=== PATIENT | male | born 1960 | race Caucasian/White ===

== ENCOUNTER 2023-08-04 03:45 | Outpatient (RCR) | payer BC, SELFPAY ==
[2023-07-30 15:46] LABS: Glucose - Point of Care 109 mg/dl (70-99)
[2023-07-30 16:27] LABS: Glucose - Point of Care 100 mg/dl (70-99)
[2023-08-01 16:06] LABS: Glucose - Point of Care 134 mg/dl (70-99)
[2023-08-01 16:58] LABS: Glucose - Point of Care 110 mg/dl (70-99)
[2023-08-04 15:51] LABS: Glucose - Point of Care 121 mg/dl (70-99)
[2023-08-04 16:36] LABS: Glucose - Point of Care 96 mg/dl (70-99)
[2023-08-04 16:45] LABS: Glucose - Point of Care 86 mg/dl (70-99)
[2023-08-04 16:59] LABS: Glucose - Point of Care 102 mg/dl (70-99)
== END 2023-08-04 23:59 | disposition home or self-care (01) ==
LOC: CRHB 03:45
PROVIDERS: ATTENDING PHYSICIAN Internal Medicine Cardiovascular Disease; FAMILY PHYSICIAN Internal Medicine
DX: I25.10 Atherosclerotic heart disease of native coronary artery without angina pectoris (principal); Z95.5 Presence of coronary angioplasty implant and graft; I25.2 Old myocardial infarction
CPT/HCPCS: 82962; G0422; G0423

== ENCOUNTER 2023-12-04 13:43 | Observation (INO) | payer BC, SELFPAY ==
[2023-12-04] VITALS (18 sets, daily range): BP systolic 102–132; BP diastolic 51–81; BMI 26.8
--- NOTE | 2023-12-04 08:56 | ED.GENMED ---
History of Present Illness
General
Chief Complaint: Chest Pain
Source: patient and records
Time Seen by Provider: 12/04/23 08:34
Travel History
Have you had any contact with someone who has COVID-19?: No
Do you have any symptoms of coronavirus? Fever > 100 degrees, chills, cough, shortness of breath, sore throat, loss of taste or smell, muscle aches, or headache?: No
History of Present Illness
History of Present Illness:
63-year-old male with past medical history of hypertension, hyperlipidemia, diabetes, CAD status post multiple coronary stents with last in July 2023, follows with hand outside cutter Dr. Christine, presenting to the emergency department for evaluation
after he was awoken from sleep around 2 AM with a sensation in the upper part of his chest and throat that he describes as if he were running in the cold air and causing discomfort in his chest. Patient took 1 sublingual nitroglycerin with some
relief and was able to fall back asleep. He awoke again around 630 and while showering developed the discomfort again in his chest and took another sublingual nitroglycerin which she is did help the pain but did not take it away completely.
Patient notes that he was a little diaphoretic during the first episode of chest discomfort but states he was also under the covers and was not sure if it was related to being a warm sleeper. Patient denies any shortness of breath, palpitations,
exertional dyspnea, orthopnea, lower extremity edema, fevers or any recent infections, recent travel or any other concerns. He reports good compliance with his medications including aspirin and Plavix.
Past History
Past History
ED Past Medical History: CAD, HTN, Hypercholesterolemia, NIDDM and CO
ED Past Surgical History: Cardiac and Orthopedic
Social History
Tobacco: Non-smoker
Alcohol: None
Drug: None
Personal:
Living: with family
Employment: Employed
Review of Systems
Review of Systems
All Other Systems: ROS reviewed and negative except as documented in HPI and ROS
Phy Exam
Physical Exam
Physical Exam:
GENERAL: Alert , in no apparent distress
EYE: conjunctiva clear
NECK: Supple
ENT: o/p clr, mmm.
CARDIAC: Regular rate and rhythm, no murmur
LUNGS: Clear breath sounds bilaterally, no acute respiratory distress, no wheezes/rales/rhonchi
NEUROLOGICAL: Alert and oriented
SKIN: Warm and dry, skin intact.
MUSCULOSKELETAL: well perfused. No edema
PSYCH: Normal and appropriate interaction.
Scores
Heart Failure Risk
Heart Failure Risk Score: Not Applicable
Heart Score for Chest Pain Patients
STEMI patient?: No
History: Moderately Suspicious
ECG: Normal
Age: >45 - <65 years
Risk Factors: >/= 3 Risk Factors or History of CAD
Troponin: </= Normal Limit
Heart Score for Chest Pain Patients: 4
Heart Score Risk: 20.3% MACE over next 6 weeks
Withdrawal Assessment of Alcohol
Withdrawal Assessment Completed?: Not applicable
Course
Orders/Labs/Results
Orders:
Orders
12/04/23 08:17
Electrocardiogram (*1) Urgent
Reason for Study: Chest Pain
EKG- Treatment ONCE
12/04/23 08:51
Cardiac Monitoring- Treatment ONCE
CR Chest - 2 Views Urgent
Comment:
Reason For Exam: chest pain
12/04/23 09:03
Complete Blood Count/With Diff Urgent
Comprehensive Metabolic Panel Urgent
PTT Urgent
Prothrombin Time Urgent
Troponin I Urgent
12/04/23 12:33
Troponin I Urgent
Abnormal Lab Results
12/04/23
09:03
RDW 14.7 H %
(11.5-14.5)
Absolute Neuts (auto) 7.7 H 10^3/uL
(1.4-6.5)
Lymphocytes % 18.1 L %
(20.5-51.1)
Sodium 134 L mmol/L
(135-145)
Glucose 150 H mg/dl
(70-99)
12/04/23 09:03
12/04/23 09:03
Vital Signs
Initial and Last Documented VS:
Initial Vital Signs
Temp Pulse Resp BP Pulse Ox
98.0 F 86 18 131/73 96
12/04/23 08:24 12/04/23 08:24 12/04/23 08:24 12/04/23 08:24 12/04/23 08:24
Last Documented Vital Signs
Temp Pulse Resp BP Pulse Ox
98.0 F 84 16 119/73 96
12/04/23 08:24 12/04/23 12:15 12/04/23 12:15 12/04/23 12:00 12/04/23 12:15
Health And Safety Advisor consulted with Physician
Health And Safety Advisor consulted with physician?: Yes
Name of Physician Consulted: Mary
MDM/Problems Addressed
Differential Diagnosis Includes:
atypical ACS, angina, musculoskeletal, GERD, gastritis
MDM/Problems Addressed:
63-year-old male present emergency department for 2 separate episodes of chest discomfort since 2 AM this morning. Notes that these presenting symptoms felt similar to when he needed previous coronary stents with last being in July 2023.
Patient's EKG in triage is nonischemic and reassuring. He is currently symptom-free at this time. Will check labs and chest x-ray. Will discuss with cardiology team as well given risk factors and presenting symptoms.
Chronic conditions affecting care: CAD
*Radiology
Radiology exam reviewed: preliminary read by ED provider (unremarkable CXR)
*Pulse Oximetry
Patient hypoxic: no
*EKG
Interpreted by ED Provider?: Yes
Comparison EKG: no changes
Heart Rate: 78
Rate: normal
Rhythm: sinus
Mathis: normal axis
Ischemia: no ischemia
*Wire Twisting Machine Operator Interpretation
Rate: normal
Rhythm: sinus
*Critical Care Note
Total Time (30-74mins, 75-104mins- exclusive of procedures): Not Applicable
Data Reviewed
Review of Other/Old Records Reveals: Labs, Records and Discharge Summary
Source: patient and records
Patient Management
Discussion with other providers: Hospitalist and Industrial Arts Teacher
Escalation/DeEscalation of care consider admission/obs:
Cardiology team was notified and came to the emergency department to evaluate the patient. They are ultimately recommending the patient to be admitted for further evaluation and treatment. Repeat troponin was ordered. Hospitalist was notified and
accepts patient for continued evaluation and treatment.
ED Attending Note
-
Portions of this chart may have been created with voice recognition software.� Occasional wrong word or��sound alike� substitutions may have occurred due to the inherent limitations of voice recognition software.
Discharge Plan
Departure
Patient Disposition: Admit
Date of Disposition: 12/04/23
Time of Disposition: 12:25
Presentation/result/management discussed w/ accepting MD/DO: Hospitalist
Discharge Problem:
Angina pectoris
Prescriptions:
No Action
aspirin 81 MG tablet,delayed release (DR/EC)
81 mg PO DAILY
metformin 1,000 MG tablet
1,000 mg PO BID
clopidogrel [Plavix] 75 mg Tablet
75 mg PO DAILY
losartan 25 mg Tablet
25 mg PO DAILY
Jardiance 25 mg Tablet
25 mg PO DAILY
nitroglycerin 0.4 mg Tablet, Sublingual
0.4 mg SUBLINGUAL [id number] PRN (Reason: chest pain)
Patient Comments:
12/04/2023, pt. took two tablets today. One tablet around 0300 and the other around 07:45.
rosuvastatin 40 mg Tablet
40 mg PO QPM 30 Days Qty: 30 2RF
pantoprazole [Protonix] 20 MG tablet,delayed release (DR/EC)
20 mg PO DAILY Qty: 0 0RF
tamsulosin [Flomax] 0.4 mg Capsule
0.4 mg PO HS Qty: 0 0RF
metoprolol succinate 50 mg Tablet Extended Release 24 Hr
50 mg PO BID
isosorbide mononitrate 120 mg Tablet Extended Release 24 Hr
120 mg PO DAILY
glimepiride 4 mg Tablet
2 mg PO DAILY
ibuprofen 200 mg Tablet
400 mg PO BIDPRN PRN (Reason: mild pain)
Ozempic 0.25 mg or 0.5 mg (2 mg/3 mL) Pen Injector
0.25 mg SC FR@0800
Patient Comments:
12/04/2023, read message between pt. and their PCP about continuing to take 0.25 mg dose of Ozempic once a week on pt.'s phone.
therapeutic multivitamin Tablet
1 tab PO QPM
insulin degludec [Tresiba FlexTouch U-200] 200 unit/mL (3 mL) insulin pen
30 - 40 unit SC HS
Patient Comments:
12/04/2023, per pt., they take between 30-40 units of this med. HS; if their BS is below 150 they take closer to 30 units and if their BS is around 100 they skip the dose altogether.
Referrals:
John Laguerre MD [Family Provider] -
Interventions
Interventions:
*Risk Screen - Suicide Last Done: 12/04/23 08:24
*General Assessment Last Done: 12/04/23 08:59
*Neglect/Abuse Screening Last Done: 12/04/23 08:24
*ED COVID-19 Vaccine History Last Done: 12/04/23 08:24
ED- Cardiac Assessment Last Done: 12/04/23 09:01
[2023-12-04 09:14] LABS: % Basophils 0.5 % (0-2); % Eosinophils 1.3 % (0-6); % Immature Granulocytes 0.3 % (0-0.5); % Lymphocytes 18.1 % (20.5-51.1); % Monocytes 5.9 % (1.7-9.3); % Neutrophils 73.9 % (42.2-75.2); Absolute Basophils 0.1 10^3/uL (0-0.2); Absolute Eosinophils 0.1 10^3/uL (0-0.7); Absolute Lymphocytes 1.9 10^3/uL (1.2-3.4); Absolute Monocytes 0.6 10^3/uL (0.1-0.6); Absolute Neutrophils 7.7 10^3/uL (1.4-6.5); Hematocrit 41.2 % (39.0-52.0); Hemoglobin 14.2 g/dL (13.0-18.0); Mean Corp Hgb Conc. 34.5 g/dL (33.0-37.0); Mean Corpuscular Hgb 27.7 pg (27.0-31.0); Mean Corpuscular Volume 80.5 fL (80.0-94.0); Mean Platelet Volume 10.1 fL (7.4-10.4); Nucleated Red Blood Cells % 0 % (-); Platelet Count 253 10^3/uL (130-400); Red Blood Cell Count 5.12 10^6/uL (4.70-6.10); Red Cell Dist. Width 14.7 % (11.5-14.5); White Blood Cell Count 10.4 10^3/uL (4.8-10.8)
[2023-12-04 09:26] LABS: INR 1.02; PT 13.4 Sec (11.4-14.6)
[2023-12-04 09:27] LABS: APTT 32.3 Sec (23.4-35.0)
[2023-12-04 09:32] LABS: ALT (SGPT) 25 U/L (0-50); AST (SGOT) 28 U/L (17-59); Albumin 3.8 g/dl (3.5-5.0); Alkaline Phosphatase 61 U/L (38-126); Blood Urea Nitrogen 16 mg/dl (9-20); Carbon Dioxide 27 mmol/L (22-30); Chloride 103 mmol/L (98-107); Estimated Creatinine Clearance 105 ml/min; Glucose 150 mg/dl (70-99); Potassium 3.9 mmol/L (3.5-5.1); Sodium 134 mmol/L (135-145); Total Bilirubin 0.6 mg/dl (0.2-1.3); Total Protein 6.4 g/dl (6.3-8.2); eGFR > 60.00
[2023-12-04 09:40] LABS: Troponin I < 0.012 ng/ml
--- NOTE | 2023-12-04 11:11 | CON.CAR ---
Addendum entered and electronically signed by Nitesh Noland MD 12/04/23 12:36:
I saw and examined the patient.
The PRODUCT MGR's note was reviewed and I agree with the note.
Comment: 63 y/o male with hypertension, dyslipidemia, DM2, CAD with stenting (details below- hx stenting, jailed septal, jailed marginal) who is here for evaluation of chest discomfort. He has had two episodes this AM one awoke from sleep and the
other with minimal exertion, similar pain to before, and given significant CAD history will recommend coronary angiography.
- NPO for angiography
- further recommendations to follow
Original Note:
Consultation
Consultation Request
Date/Time Consultation Requested: 12/04/23 1015
Date/Time Consultation Performed: 12/04/23 1135
Requesting Provider: Deshawn Agarwal
Performing Provider: Leanne NAIR for Dr. Noland
Reason for Consultation: Chest discomfort
Medical History
-
Chief Complaint: chest discomfort
History of Present Illness:
63 y/o male with hypertension, dyslipidemia, DM2, CAD with stenting (details below- hx stenting, jailed septal, jailed marginal) who is here for evaluation of chest discomfort (left-sided cold feeling/pressure) which woke him up from sleep around
330 AM. He took a nitro and went back to sleep. He got up this morning and during his shower around 7 developed the discomfort again and took another nitro. It went away within minutes. He is here for further evaluation and EKG and troponin are
normal. He is chest pain free at the time of my assessment. He is a patient of Dr. Diallo. He has not been very active of recent.
Past Medical History
Past Medical History: CAD, HTN, Hypercholesterolemia and NIDDM
Social History
Tobacco: Former Smoker
Personal:
Living: With Family
Employment: Employed
Family History
Family History: Early CAD (brother RI age 47)
Allergies / Home Medications
Allergy/AdvReac Type Severity Reaction Status Date / Time
Fish Containing Products Allergy Anaphylaxis Verified 12/04/23 08:30
fish derived Allergy Anaphylaxis Verified 12/04/23 08:30
mollusks Allergy Anaphylaxis Verified 12/04/23 08:30
shellfish derived Allergy Anaphylaxis Verified 12/04/23 08:30
Medication Instructions Recorded Confirmed Type
aspirin 81 mg tablet,delayed 81 mg PO DAILY Blood Clot 10/14/16 12/04/23 History
release Prevention/Tx
metformin 1,000 mg tablet 1,000 mg PO BID Diabetes 10/14/16 12/04/23 History
clopidogrel 75 mg tablet (Plavix) 75 mg PO DAILY Blood Clot 07/05/23 12/04/23 History
Prevention/Tx
empagliflozin 25 mg tablet 25 mg PO DAILY Diabetes 07/05/23 12/04/23 History
(Jardiance)
losartan 25 mg tablet 25 mg PO DAILY Blood Pressure 07/05/23 12/04/23 History
nitroglycerin 0.4 mg sublingual 0.4 mg sublingual [id number] PRN 07/05/23 12/04/23 History
tablet chest pain
pantoprazole 20 mg tablet,delayed 20 mg PO DAILY GERD #0 tabs 07/09/23 12/04/23 Rx
release (Protonix)
rosuvastatin 40 mg tablet 40 mg PO QPM 30 days #30 tabs 07/09/23 12/04/23 Rx
tamsulosin 0.4 mg capsule (Flomax) 0.4 mg PO HS BPH #0 caps 07/09/23 12/04/23 Rx
glimepiride 4 mg tablet 2 mg PO DAILY 12/04/23 12/04/23 History
ibuprofen 200 mg tablet 400 mg PO BIDPRN PRN mild pain 12/04/23 12/04/23 History
insulin degludec 200 unit/mL (3 30 - 40 unit SC HS Diabetes 12/04/23 12/04/23 History
mL) subcutaneous pen (Tresiba
FlexTouch U-200 insulin)
isosorbide mononitrate 120 mg 120 mg PO DAILY 12/04/23 12/04/23 History
tablet,extended release 24 hr
metoprolol succinate 50 mg 50 mg PO BID 12/04/23 12/04/23 History
tablet,extended release 24 hr
semaglutide 0.25 mg or 0.5 mg (2 0.25 mg SC FR@0800 12/04/23 12/04/23 History
mg/3 mL) subcutaneous pen injector
(Ozempic)
therapeutic multivitamin 1 tab PO QPM Allergies 12/04/23 12/04/23 History
Review of Systems
-
History Source: Patient
All other systems: Negative unless noted
Cardiac: Chest Pain
Physical Exam
Vital Signs
Temp Pulse Resp BP Pulse Ox
98.0 F 80 20 124/75 94
12/04/23 08:24 12/04/23 09:00 12/04/23 09:00 12/04/23 09:00 12/04/23 09:01
Lab Results
12/04/23 09:03
12/04/23 09:03
Troponin I < 0.012 ng/ml 12/04/23 09:03
Physical Exam
General: Well Developed, Well Nourished and No Apparent Distress
HEENT: Normocephalic and Anicteric
Respiratory: Non Labored Respirations
Cardiac: Regular Rhythm
Breast: Deferred by me
GI: Soft, Non Distended and Normal Bowel Sounds
Musculoskeletal: No Edema
Skin: Warm and Dry
Neuro: AO x 3
Psych: Calm
Impression / Plan
-
Chest discomfort:
-resolved
-EKG and trop normal
-known significant CAD as below, this pain feels similar to previous angina
-could represent unstable angina and may need repeat cath - will discuss case with Dr. Noland
CAD:
-Cath 07/07/23: Right dominant circulation with patent stents in the proximal/mid LAD, 30% mid LAD lesion after the stented segment, a 30% lesion in the mid margin leading into the ostia of 2 daughter branches, a 90% proximal RCA lesion and tandem
70% and 60% lesions in the mid RCA, status post successful PCI to the proximal/mid RCA lesions (Xience Skypoint 3.0 x 38 MYLES, postdilated with a 3.0 NC balloon) with reduction in all stenoses to 0%, maintaining CONNOR-3 flow in the body of the vessel
but jailing and occluding the right ventricular marginal with associated chest pain.
-Continue ASA, Plavix, statin, BB, Imdur
Dyslipidemia:
-has been stable on Crestor
DM:
-on medical therapy
Data Reviewed
-
EKG: Tracing Personally Visualized and interpreted
Medical Tests (Nuc Med, Echo etc): Report Reviewed by me (echo 07/08/23: 1. Normal wall motion with EF 50-55% 2. RVE/mild RV hypokinesis 3. No significant valvular disease ) and Other (cath: )
Labs: Labs Reviewed by me
[2023-12-04 13:04] LABS: Troponin I < 0.012 ng/ml
--- NOTE | 2023-12-04 13:05 | HPS.HSE ---
Family Physician
-
Family Physician: John Laguerre MD
Chief Complaint
-
Chest pain
History of Present Illness
Patient is 63 years old male history hypertension, hyperlipidemia, diabetes mellitus, CAD presented to the hospital chest pain. Patient tells me he woke up from sleep this morning with significant chest pain, left-sided chest pain, no radiation, no
shortness of breath diaphoresis nausea or vomiting or palpitations. He took a nitro and his pain got better and he went back to sleep. He woke up again this morning with recurrence of chest discomfort and took another nitro at this time it took a
little longer to get better and decided to come to the hospital for further evaluation. He states this presentation is similar to when he had problems with heart attack. Denies any recent illness like nausea vomiting diarrhea fevers or chills.
Denies any changes on his regimen of treatment at home. Currently in the ER his chest pain-free. In the ER, hemoglobin 14.2, creatinine 0.7, troponin less than 0.012. Cardiology consulted. He was referred to hospitalist for further evaluation.
Medical History
Past Medical History
Past Medical History: Reports Other (Hypertension, hyperlipidemia, diabetes mellitus type 2, CAD.)
Past Surgical History: Reports Other (Cervical spine fusion, cholecystectomy.)
Social History
Tobacco: Former Smoker
Alcohol: None
Drug: None
Family History
Family History: Early CAD
Allergies / Home Medications
Allergies reflects when Allergies were last updated in [facility].
Home Medications with original date entered in [facility]
Allergy/Medication List:
Allergies
Allergy/AdvReac Type Severity Reaction Status Date / Time
Fish Containing Products Allergy Anaphylaxis Verified 12/04/23 08:30
fish derived Allergy Anaphylaxis Verified 12/04/23 08:30
mollusks Allergy Anaphylaxis Verified 12/04/23 08:30
shellfish derived Allergy Anaphylaxis Verified 12/04/23 08:30
Home Medications
aspirin 81 mg tablet,delayed release 81 mg PO DAILY Blood Clot Prevention/Tx 10/14/16
metformin 1,000 mg tablet 1,000 mg PO BID Diabetes 10/14/16
clopidogrel 75 mg tablet (Plavix) 75 mg PO DAILY Blood Clot Prevention/Tx 07/05/23
empagliflozin 25 mg tablet (Jardiance) 25 mg PO DAILY Diabetes 07/05/23
losartan 25 mg tablet 25 mg PO DAILY Blood Pressure 07/05/23
nitroglycerin 0.4 mg sublingual tablet 0.4 mg sublingual [id number] PRN chest pain 07/05/23
pantoprazole 20 mg tablet,delayed release (Protonix) 20 mg PO DAILY GERD #0 tabs 07/09/23
tamsulosin 0.4 mg capsule (Flomax) 0.4 mg PO HS BPH #0 caps 07/09/23
glimepiride 4 mg tablet 2 mg PO DAILY Diabetes 12/04/23
ibuprofen 200 mg tablet 400 mg PO BIDPRN PRN mild pain 12/04/23
insulin degludec 200 unit/mL (3 mL) subcutaneous pen (Tresiba FlexTouch U-200 insulin) 30 - 40 unit SC HS Diabetes 12/04/23
isosorbide mononitrate 120 mg tablet,extended release 24 hr 120 mg PO DAILY Heart Disease/Condition 12/04/23
metoprolol succinate 50 mg tablet,extended release 24 hr 50 mg PO BID Blood Pressure 12/04/23
rosuvastatin 40 mg tablet 40 mg PO QPM High Cholesterol 12/04/23
semaglutide 0.25 mg or 0.5 mg (2 mg/3 mL) subcutaneous pen injector (Ozempic) 0.25 mg SC FR@0800 Diabetes 12/04/23
therapeutic multivitamin 1 tab PO QPM Supplement 12/04/23
Review of Systems
-
A 12 point ROS was completed and negative except as noted: Yes
Physical Exam
Vital Signs
Vital Signs
Temp Pulse Resp BP Pulse Ox
98.0 F 84 16 119/73 96
12/04/23 08:24 12/04/23 12:15 12/04/23 12:15 12/04/23 12:00 12/04/23 12:15
Physical exam:
General: Well Developed, Well Nourished and No Apparent Distress
HEENT: Normocephalic, Atraumatic and Moist Mucous Membranes
Respiratory: Clear to Auscultation; Negative Wheezes, Rales or Rhonchi
Cardiac: Regular Rhythm and S1/S2
GI: Soft, Nontender and Nondistended
Musculoskeletal: No Clubbing, No Cyanosis and No Edema
Neuro: Awake, Alert and Oriented
Psych: Calm
Physical Exam
General: Other
Laboratory Results
-
12/04/23 09:03
12/04/23 09:03
Laboratory Results
PT 13.4 Sec (11.4-14.6) 12/04/23 09:03
INR 1.02 12/04/23 09:03
APTT 32.3 Sec (23.4-35.0) 12/04/23 09:03
Total Bilirubin 0.6 mg/dl (0.2-1.3) 12/04/23 09:03
AST 28 U/L (17-59) 12/04/23 09:03
ALT 25 U/L (0-50) 12/04/23 09:03
Alkaline Phosphatase 61 U/L (38-126) 12/04/23 09:03
Troponin I < 0.012 ng/ml 12/04/23 12:33
Impression/Plan
-
IMPRESSION:
Patient 62 years old male with hypertension hyperlipidemia diabetes mellitus CAD came to the hospital chest pain. Concerns for angina pectoris.
Impression:
Chest pain, concern for angina pectoris
Hyponatremia
Conditions prior to presentation:
Coronary artery disease
Hypertension
Diabetes mellitus type 2
Hyperlipidemia
BPH
PLAN:
Cardiology consulted
Plan for cardiac cath if possible today
Cardiac meds according to workup
Cardiac monitoring
Trend cardiac enzymes
Seen and reviewed twelve-lead EKG
Reviewed last cardiac catheterization back in July 2020 right upper circulation, patent stents in the proximal and mid LAD, 30% mid LAD lesion after the stented segment, 30% lesion in the mid margin leading into the ostial of 2 branches, 90%
proximal RCA lesion in tandem 70% and 60% lesions in the mid RCA, status post assessable PCI to the proximal mid RCA lesions with reduction of stenosis to 0% but jailing and occluding in the right ventricular marginal with associated chest pain.
Update hemoglobin A1c
Insulin sliding scale
Once able to take oral, will resume all his medications. Will clarify accurate list of medications from home.
He is on a regimen of aspirin, Plavix, statins, beta-blockers, nitrates, and ARB.
He is also on Ozempic, metformin, Tresiba, Jardiance, and glimepiride.
He is on Protonix, and Flomax.
DVT prophylaxis Lovenox
CODE STATUS full code
Total time spent on today's encounter was 75 minutes which included time spent in counseling the patient/family regarding diagnosis and treatment plan as listed above, goals of care, and symptom management. Case was discussed with nursing staff,
specialists, and care coordinators/case management. All labs and imaging personally reviewed by me. Remainder the time spent in detailed review of previous records, lab data, imaging, and other medical provider documentation.
--- NOTE | 2023-12-04 16:26 | ITS.CL.CATH ---
Rn Clinical Resource - Catheterization
Cardiac Catheterization
Procedure Report:
CARDIAC CATHETERIZATION REPORT
Date of Procedure: 12/04/2023
Referring: Nitesh Noland MD
Indication: Unstable angina (troponin negative x 2)
HEMODYNAMIC DATA
AO: 132/64
LV: 132/14
LEFT VENTRICULOGRAPHY: Normal left ventricular wall motion with EF 63%
CORONARY ANGIOGRAPHY
Dominance: Right
Left Main: Normal
LAD: 20% ostial LAD stenosis. There is a widely patent proximal LAD stent with no restenosis. The remainder of the LAD proper has trivial luminal disease. There is total occlusion of a septal investigations manager originating from the mid LAD which fills
via right to left collaterals and is unchanged compared with the prior study from July 07, 2023.
Circumflex: Mild luminal irregularities
RCA: There are widely patent mid RCA stents (07/2023) with no restenosis. There is 30% stenosis in the distal RCA past the crux. The remainder of the RCA system has mild luminal irregularities
Closure Device: 6F Angio-Seal LFA. Of note there was no palpable right radial artery pulse and femoral access was therefore used. The patient had a right femoral artery access procedure in July 2023 so we used the left femoral artery.
Radiation (mGy): 195
DAP (cm2.Gy): 16.8
Fluoroscopy time: 1.7 minutes
CONCLUSIONS
1: Normal left ventricular function with EF 63%
2: Very mild residual CAD with widely patent stents in the LAD and RCA
Copy to: Valentin Christine MD, John Laguerre MD
Demetrius Gibson MD, [facility], [facility]
[2023-12-04] MEDS: CRESTOR 40 MG PO (18:03)
--- NOTE | 2023-12-04 18:29 | PTCARENOTE ---
received pt from mechanical laboratory technician, pts left groin is CDI. pt offers no complaints at this time. pt educated on plan of care, oriented to unit, and pt verbalized understanding. call [facility] within reach.
[2023-12-04] MEDS: TYLENOL 650 MG PO (20:06)
[2023-12-04] MEDS: TOPROL XL 50 MG PO (20:06)
--- NOTE | 2023-12-04 21:22 | PTCARENOTE ---
assumed care of patient. AAOx3. oob for the first time since cath. steady on his feet. denies any lightheadedness/dizziness. L groin site, CDI, soft, angioseal. + pulses. denies any cp/sob. educated patient to inform RN with any changes. SR on tele
80s. bp stable. ambulated in the hallway x2. call [facility] within reach. calls appropriately.
[2023-12-04 22:07] LABS: Glucose - Point of Care 193 mg/dl (70-99)
[2023-12-05 03:13] VITALS: BP 130/86
[2023-12-05 03:27] VITALS: BMI 26.4
[2023-12-05 03:36] LABS: Hematocrit 41.3 % (39.0-52.0); Hemoglobin 14.2 g/dL (13.0-18.0); Mean Corp Hgb Conc. 34.4 g/dL (33.0-37.0); Mean Corpuscular Hgb 27.8 pg (27.0-31.0); Mean Corpuscular Volume 80.8 fL (80.0-94.0); Mean Platelet Volume 10.1 fL (7.4-10.4); Platelet Count 253 10^3/uL (130-400); Red Blood Cell Count 5.11 10^6/uL (4.70-6.10); Red Cell Dist. Width 14.8 % (11.5-14.5)
[2023-12-05 03:55] LABS: Troponin I < 0.012 ng/ml
[2023-12-05 04:01] LABS: Blood Urea Nitrogen 17 mg/dl (9-20); Calcium 9.4 mg/dl (8.4-10.2); Carbon Dioxide 31 mmol/L (22-30); Chloride 100 mmol/L (98-107); Estimated Creatinine Clearance 91 ml/min; Glucose 130 mg/dl (70-99); HDL Cholesterol 33 mg/dl; LDL Cholesterol, Calculated -4 mg/dl; Potassium 3.9 mmol/L (3.5-5.1); Sodium 139 mmol/L (135-145); Total Cholesterol 81 mg/dl (50-199); Triglyceride 264 mg/dl (10-149); Very Low Density Lipoprotein 52 mg/dl (0-30); eGFR > 60.00
[2023-12-05 04:49] LABS: Hepatitis C Antibody Negative (Negative)
[2023-12-05 07:27] VITALS: BP 131/74
[2023-12-05 07:30] LABS: Glucose - Point of Care 126 mg/dl (70-99)
[2023-12-05] MEDS: ASPIR LOW (ENTERIC COATED) 81 MG PO (08:04)
[2023-12-05] MEDS: TOPROL XL 50 MG PO (08:04)
[2023-12-05] MEDS: IMDUR (EXTENDED RELEASE) 120 MG PO (08:04)
[2023-12-05] MEDS: PROTONIX 20 MG PO (08:04)
[2023-12-05] MEDS: COZAAR 25 MG PO (08:04)
[2023-12-05] MEDS: PLAVIX 75 MG PO (08:04)
--- NOTE | 2023-12-05 08:24 | W.PN.HOSP.TC ---
Today's Communication/Plan
-
Discharge planning today.
Assessment / Plan
Assessment / Plan
Physical exam:
General: Well Developed, Well Nourished and No Apparent Distress
HEENT: Normocephalic, Atraumatic and Moist Mucous Membranes
Respiratory: Clear to Auscultation; Negative Wheezes, Rales or Rhonchi
Cardiac: Regular Rhythm and S1/S2
GI: Soft, Nontender and Nondistended
Musculoskeletal: No Clubbing, No Cyanosis and No Edema
Neuro: Awake, Alert and Oriented
Psych: Calm
A/P:
Impression:
Chest pain, concern for angina pectoris
Hyponatremia
Conditions prior to presentation:
Coronary artery disease
Hypertension
Diabetes mellitus type 2
Hyperlipidemia
BPH
PLAN:
Cardiology consulted
Plan for cardiac cath done on and no significant CAD by cardiac cath.Cath 12/04/23 with very mild residual CAD with widely patent stents in the LAD and RCA, EF 63%.
Cardiology recommend increase beta-blockers
Cardiac meds according to workup
Cardiac monitoring
Trend cardiac enzymes
Seen and reviewed twelve-lead EKG
Reviewed last cardiac catheterization
Update hemoglobin A1c
Insulin sliding scale
Once able to take oral, will resume all his medications.� Will clarify accurate list of medications from home.
He is on a regimen of aspirin, Plavix, statins, beta-blockers, nitrates, and ARB.
He is also on Ozempic, metformin, Tresiba, Jardiance, and glimepiride.
He is on Protonix, and Flomax.
DVT prophylaxis Lovenox
CODE STATUS full code
Anticipated Discharge: Today
Subjective/Interval History
-
Date of Service: December 05, 2023
Patient denies any chest pain or shortness of breath today.
Objective Data
-
Labs:
Laboratory Results
12/05/23
03:13
WBC 9.0
Hgb 14.2
Hct 41.3
Plt Count 253
Sodium 139
Potassium 3.9
Chloride 100
Carbon Dioxide 31 H
BUN 17
Creatinine 0.8
Glucose 130 H
Calcium 9.4
Vital Signs:
Vital Signs
Temp Pulse Resp BP Pulse Ox
98.4 F 79 20 131/74 96
12/05/23 07:25 12/05/23 08:04 12/05/23 07:25 12/05/23 08:04 12/05/23 07:25
I&O
12/04/23 12/05/23 12/06/23
06:59 06:59 06:59
Intake Total 1030 / 1030
Output Total 300 / 300
Balance 730 / 730
[2023-12-05] MEDS: JARDIANCE 25 MG PO (09:23)
[2023-12-05] MEDS: THERAGRAN 1 TABLET PO (09:23)
[2023-12-05] MEDS: AMARYL 2 MG PO (09:23)
--- NOTE | 2023-12-05 09:31 | W.PN.CD ---
Today's Communication / Plan
-
stable for d/c, increase Toprol to 75mg BID and f/u with bell maker Dr. Diallo.
Impression / Plan
-
Chest discomfort:
-resolved
-EKG and trop normal
-known significant CAD as below, this pain feels similar to previous angina
-Cath 12/04/23 with very mild residual CAD with widely patent stents in the LAD and RCA, EF 63%.
-will increase Toprol to 75mg BID and monitor, follow up with bell maker Dr. Diallo.
CAD:
-Cath 07/07/23: Right dominant circulation with patent stents in the proximal/mid LAD, 30% mid LAD lesion after the stented segment, a 30% lesion in the mid margin leading into the ostia of 2 daughter branches, a 90% proximal RCA lesion and tandem
70% and 60% lesions in the mid RCA, status post successful PCI to the proximal/mid RCA lesions (Xience Skypoint 3.0 x 38 MYLES, postdilated with a 3.0 NC balloon) with reduction in all stenoses to 0%, maintaining CONNOR-3 flow in the body of the vessel
but jailing and occluding the right ventricular marginal with associated chest pain.
-cath 12/04/23: very mild residual CAD with widely patent stents in the LAD and RCA.
-Continue ASA, Plavix, statin, BB, Imdur.
Dyslipidemia:
-LDL is -4 on Crestor.
DM:
-stable on medical therapy.
Physical Exam
Vital Signs/Labs
Vital Signs
Temp Pulse Resp BP Pulse Ox
98.4 F 79 20 131/74 96
12/05/23 07:25 12/05/23 08:04 12/05/23 07:25 12/05/23 08:04 12/05/23 07:25
12/04/23 12/05/23 12/06/23
06:59 06:59 06:59
Actual Weight 78.7 kg
12/05/23 03:13
12/05/23 03:13
PT 13.4 Sec (11.4-14.6) 12/04/23 09:03
INR 1.02 12/04/23 09:03
APTT 32.3 Sec (23.4-35.0) 12/04/23 09:03
Triglycerides 264 mg/dl (10-149) H 12/05/23 03:13
LDL Cholesterol, Calc -4 mg/dl 12/05/23 03:13
VLDL Cholesterol, Calc 52 mg/dl (0-30) H 12/05/23 03:13
HDL Cholesterol 33 mg/dl 12/05/23 03:13
LAB Results
12/04/23 12/04/23 12/04/23
09:03 12:33 16:25
Troponin I < 0.012 < 0.012 Cancelled
12/04/23 12/04/23 12/05/23
19:25 22:25 03:13
Troponin I Cancelled Cancelled < 0.012
Physical Exam
Constitutional: No acute distress and Comfortable
EENT: Anicteric and Moist mucous membranes
Cardiovascular: Rhythm & rate is regular
Respiratory: Respiratory effort normal and Lungs clear to auscul.
GI: Soft, Non tender and Normal bowel sounds
Neuro/Psych: AO x 3
Other: Skin (warm, dry) and Cath Site (left groin intact)
Data Reviewed
-
Date of Service: December 05, 2023
Medical Decision Making: Reviewed Test Results
EKG: Tracing Personally Visualized and interpreted
X-Ray/CT/US/MRI/NUC/PET: Report Reviewed by me (cath report)
Labs: Labs Reviewed by me
Old Records: Reviewed
--- NOTE | 2023-12-05 10:24 | CM ---
Reviewed chart. Met with Mr. Tello to review discharge plans. He states prior to admission he resides with his spouse and daughter in a two story home with two steps to enter. He states he has a full flight of steps to get to bedroom/full bathroom.
He states he has a powder room on the first floor. He states prior to admission he was independent with ambulation and adls. He states he does not have any DME in the home. He states he has a prescription plan and uses [facility]. The
discharge plan is to return home with his spouse and daughter when medically stable.
--- NOTE | 2023-12-05 10:29 | PTCARENOTE ---
pt continues to be SR on the monitor, vss. pt offers no complaints at this time. pts groin is CDI and pt denies pain at site. pt has been ambulating the halls/room with no issue. pt educated on plan of care and pt verbalized understanding. call [facility]
within reach.
[2023-12-05 11:15] LABS: Glycohemoglobin (HgbA1c) 6.6 % (4.0-5.6)
--- NOTE | 2023-12-05 11:33 | W.DCSUMMARY ---
Discharge Summary
Discharge Data
Date of Admission: 12/04/23
Date of Discharge: 12/05/23
-
Pending Results: No
Hospital Course
Patient 63 years old male with history of hypertension, hyperlipidemia, diabetes mellitus, CAD, presented to the hospital chest pain. Cardiology consulted. In light of his cardiac history and presentation patient underwent cardiac catheterization.
Cardiac cath shows known significant CAD on with very mild residual CAD and widely patent stents in the LAD and RCA and EF of 63%. Cardiology recommended increase his beta-ramakrishna Toprol-XL from 50 mg twice a day up to 75 mg twice a day.
Patient is chest pain free and symptomatically back to his baseline. Cardiology cleared her for discharge today. No other events were noticed.
Discharge Plan
-
Patient Disposition: Home (Routine Discharge)
Discharge Diagnosis/Procedures: Chest pain, Cardiac cath
Diet: Low Cholesterol and Diabetic, Carb Controlled
Driving Restrictions: No driving for 24 hours
Stop these medications:: Hold Metformin post procedure, resume on Sat evening
Stand Alone Forms: DC Instructions- Cath/EP Lab
Referrals:
Valentin Christine MD [Non-Admitting Privileges] - 01/14/24 8:00 am
John Laguerre MD [Family Provider] - in one to two months
Prescriptions:
New
metoprolol succinate 50 mg Tablet Extended Release 24 Hr
75 mg PO BID 30 Days Qty: 90 0RF
Continued
aspirin 81 MG tablet,delayed release (DR/EC)
81 mg PO DAILY
clopidogrel [Plavix] 75 mg Tablet
75 mg PO DAILY
losartan 25 mg Tablet
25 mg PO DAILY
Jardiance 25 mg Tablet
25 mg PO DAILY
nitroglycerin 0.4 mg Tablet, Sublingual
0.4 mg SUBLINGUAL [id number] PRN (Reason: chest pain)
Patient Comments:
12/04/2023, pt. took two tablets today. One tablet around 0300 and the other around 07:45.
pantoprazole [Protonix] 20 MG tablet,delayed release (DR/EC)
20 mg PO DAILY Qty: 0 0RF
tamsulosin [Flomax] 0.4 mg Capsule
0.4 mg PO HS Qty: 0 0RF
isosorbide mononitrate 120 mg Tablet Extended Release 24 Hr
120 mg PO DAILY
glimepiride 4 mg Tablet
2 mg PO DAILY
ibuprofen 200 mg Tablet
400 mg PO BIDPRN PRN (Reason: mild pain)
Ozempic 0.25 mg or 0.5 mg (2 mg/3 mL) Pen Injector
0.25 mg SC FR@0800
Patient Comments:
12/04/2023, read message between pt. and their PCP about continuing to take 0.25 mg dose of Ozempic once a week on pt.'s phone.
therapeutic multivitamin Tablet
1 tab PO QPM
insulin degludec [Tresiba FlexTouch U-200] 200 unit/mL (3 mL) insulin pen
30 - 40 unit SC HS
Patient Comments:
12/04/2023, per pt., they take between 30-40 units of this med. HS; if their BS is below 150 they take closer to 30 units and if their BS is around 100 they skip the dose altogether.
rosuvastatin 40 mg tablet
40 mg PO QPM
Held
metformin 1,000 MG tablet
1,000 mg PO BID
Hold Instructions: Resume on 12/06/23.
Discontinued
metoprolol succinate 50 mg Tablet Extended Release 24 Hr
50 mg PO BID
Discharge Orders:
Discharge Patient (As Directed); Ordered 12/05/23
Ordered By: Hal White
Care Plan Goals
Care Plan Goals:
Problem: Readiness for enhanced knowledge related to diagnosis and treatment plan
Goal: Understand your diagnosis and treatment plan needs, including medications if applicable.
Instructions: Know your diagnosis, underlying causes and treatment plan options, including medications if applicable. Consult with your health care team to learn about your diagnosis and treatment plan, including medications if applicable.
Discharge Date and Time
Discharge Date/Time: 12/05/23 13:27
[2023-12-05] MEDS: FLUZONE QUAD 2023-2024 SYRINGE 0.5 ML IM (12:23)
--- NOTE | 2023-12-05 13:35 | PTCARENOTE ---
d/c instructions read to pt and pt verbalized understanding. pt left with belongings from room, scripts and educational material. IV and tele removed. pt left via wheelchair with staff member.
== END 2023-12-05 13:27 | disposition home or self-care (01) ==
LOC: IVU 13:43
PROVIDERS: Nurse Practitioner; Nurse Practitioner Adult Health; Physician Assistant Medical; ADMITTING PHYSICIAN Hospitalist; CONSULT PHYSICIAN Internal Medicine Cardiovascular Disease; EMERGENCY PHYSICIAN Emergency Medicine; FAMILY PHYSICIAN Internal Medicine
DX: R07.89 Other chest pain (principal); I10 Essential (primary) hypertension; E78.00 Pure hypercholesterolemia, unspecified; E87.1 Hypo-osmolality and hyponatremia; N40.0 Benign prostatic hyperplasia without lower urinary tract symptoms; E78.5 Hyperlipidemia, unspecified; E11.9 Type 2 diabetes mellitus without complications; I25.10 Atherosclerotic heart disease of native coronary artery without angina pectoris; I25.2 Old myocardial infarction; Z79.82 Long term (current) use of aspirin; Z95.5 Presence of coronary angioplasty implant and graft; Z79.84 Long term (current) use of oral hypoglycemic drugs; Z79.85 Long-term (current) use of injectable non-insulin antidiabetic drugs; Z79.4 Long term (current) use of insulin; Z79.02 Long term (current) use of antithrombotics/antiplatelets; Z87.891 Personal history of nicotine dependence; Z82.49 Family history of ischemic heart disease and other diseases of the circulatory system; Z91.013 Allergy to seafood; Z98.1 Arthrodesis status; Z90.49 Acquired absence of other specified parts of digestive tract; Z23 Encounter for immunization
CPT/HCPCS: 71046; 80048; 80053; 80061; 82962; 83036; 84484; 85025; 85027; 85610; 85730; 86803; 90686; 93005; 93458; 99285; C1760; C1894; G0008; G0378; Q9967

== ENCOUNTER 2024-12-05 00:46 | Observation (INO) | payer BC, SELFPAY ==
[2024-12-04] VITALS (9 sets, daily range): BP systolic 108–137; BP diastolic 52–110
[2024-12-04 19:51] LABS: % Basophils 0.6 % (0-2); % Eosinophils 1.6 % (0-6); % Immature Granulocytes 0.3 % (0-0.5); % Monocytes 7.6 % (1.7-9.3); % Neutrophils 54.9 % (42.2-75.2); Absolute Basophils 0.1 10^3/uL (0-0.2); Absolute Eosinophils 0.1 10^3/uL (0-0.7); Absolute Lymphocytes 2.8 10^3/uL (1.2-3.4); Absolute Monocytes 0.6 10^3/uL (0.1-0.6); Absolute Neutrophils 4.4 10^3/uL (1.4-6.5); Hematocrit 37.8 % (39.0-52.0); Hemoglobin 12.7 g/dL (13.0-18.0); Mean Corp Hgb Conc. 33.6 g/dL (33.0-37.0); Mean Corpuscular Volume 83.4 fL (80.0-94.0); Mean Platelet Volume 10.1 fL (7.4-10.4); Nucleated Red Blood Cells % 0 % (-); Platelet Count 238 10^3/uL (130-400); Red Blood Cell Count 4.53 10^6/uL (4.70-6.10); Red Cell Dist. Width 14.2 % (11.5-14.5)
[2024-12-04 20:08] LABS: ALT (SGPT) 19 U/L (0-50); AST (SGOT) 21 U/L (17-59); Albumin 3.9 g/dl (3.5-5.0); Alkaline Phosphatase 60 U/L (38-126); Blood Urea Nitrogen 20 mg/dl (9-20); Calcium 9.3 mg/dl (8.4-10.2); Carbon Dioxide 27 mmol/L (22-30); Chloride 100 mmol/L (98-107); Glucose 112 mg/dl (70-99); Potassium 3.9 mmol/L (3.5-5.1); Sodium 137 mmol/L (135-145); Total Bilirubin 0.8 mg/dl (0.2-1.3); Total Protein 6.1 g/dl (6.3-8.2); eGFR > 60.00
[2024-12-04 20:16] LABS: Troponin I < 0.012 ng/ml
[2024-12-04] MEDS: ASPIRIN 325 MG PO (22:23)
[2024-12-04] MEDS: NITROSTAT (SUBLINGUAL) 0.4 MG SL (22:43)
[2024-12-04 23:00] LABS: Troponin I < 0.012 ng/ml
--- NOTE | 2024-12-04 23:04 | ED.GENMED ---
History of Present Illness
General
Chief Complaint: Chest Pain
Source: patient
Exam Limitations: none
Time Seen by Provider: 12/04/24 21:04
Nursing documentation reviewed up to this point in time: agreed with
History of Present Illness
History of Present Illness:
64-year-old male with past ministry of CAD status post multiple stents in the past, hypertension hyperlipidemia, diabetes, previous smoker presenting to the emergency department today with concerns of persistent left-sided chest pressure sharp
comfort started at home. No significant associated nausea vomiting, diaphoresis, radiation. Does claim that it feels similar to previous symptoms prior to a heart attack. Took 3 doses of nitro at home that had some but then symptoms recurred.
Claims to have some ongoing symptoms here. Did take his daily baby aspirin as well as Plavix at home.
Past History
Past History
ED Past Medical History: CAD, HTN, Hypercholesterolemia, NIDDM and [place]
ED Past Surgical History: Cardiac and Orthopedic
Social History
Tobacco: Non-smoker
Alcohol: None
Drug: None
Personal:
Living: with family
Employment: Employed
Review of Systems
Review of Systems
Allergies reviewed?: Yes
All Other Systems: ROS reviewed and negative except as documented in HPI and ROS
Phy Exam
Physical Exam
Physical Exam:
GENERAL: Alert , in no apparent distress
EYE: pupils equal and reactive
NECK: Supple, no significant adenopathy.
ENT: o/p clr, mmm.
CARDIAC: Regular rate and rhythm .
LUNGS: Clear breath sounds bilaterally, no acute respiratory distress, no wheezes/rales/rhonchi
ABDOMEN: Soft, without focal tenderness, no r/g, no cvat
NEUROLOGICAL: Alert and oriented, no focal neuro deficits
SKIN: Warm and dry, skin intact.
MUSCULOSKELETAL: No edema, well perfused.
PSYCH: Normal and appropriate interaction.
Scores
Heart Score for Chest Pain Patients
STEMI patient?: No
History: Highly Suspicious
ECG: Normal
Age: >45 - <65 years
Risk Factors: >/= 3 Risk Factors or History of CAD
Troponin: </= Normal Limit
Heart Score for Chest Pain Patients: 5
Heart Score Risk: 20.3% MACE over next 6 weeks
Course
Orders/Labs/Results
Orders:
Orders
12/04/24 19:00
Electrocardiogram (*1) Urgent
Reason for Study: Chest Pain
EKG- Treatment ONCE
12/04/24 19:12
CR Chest - 2 Views Urgent
Comment:
Reason For Exam: respiratory distress
12/04/24 19:45
Complete Blood Count/With Diff Urgent
Comprehensive Metabolic Panel Urgent
Troponin I Urgent
12/04/24 21:53
Electrocardiogram (*1) Urgent
Reason for Study: Chest Pain
EKG- Treatment ONCE
Aspirin 325 mg PO NOW STA
Nitroglycerin Sublingual [Nitrostat (Sublingual)] 0.4 mg SL [id number] PRN
12/04/24 22:27
Troponin I Urgent
Abnormal Lab Results
12/04/24
19:45
RBC 4.53 L 10^6/uL
(4.70-6.10)
Hgb 12.7 L g/dL
(13.0-18.0)
Hct 37.8 L %
(39.0-52.0)
Glucose 112 H mg/dl
(70-99)
Total Protein 6.1 L g/dl
(6.3-8.2)
12/04/24 19:45
12/04/24 19:45
Vital Signs
Initial and Last Documented VS:
Initial Vital Signs
Temp Pulse Resp BP Pulse Ox
98.2 F 72 18 137/75 97
12/04/24 19:13 12/04/24 19:13 12/04/24 19:13 12/04/24 19:13 12/04/24 19:13
Last Documented Vital Signs
Temp Pulse Resp BP Pulse Ox
98.2 F 74 21 117/67 97
12/04/24 19:13 12/04/24 20:15 12/04/24 20:15 12/04/24 22:43 12/04/24 20:45
MDM/Problems Addressed
MDM/Problems Addressed:
64-year-old male presenting to the emergency department today with concerns of left-sided chest discomfort without radiation no associated symptoms. Slight improvement with nitro that was short-lived and recurred. Some ongoing symptoms here was
given aspirin as well as additional nitro dose here. Initial EKG normal initial troponin negative vital signs normal labs otherwise unremarkable. Chest x-ray normal. Here patient had recurrence of symptoms when going to the bathroom. He was
given additional dose of nitro with improvement. EKG was repeated unchanged 2 negative troponins. Considering the patient's concerning story plan to admit for cardiology consultation and monitoring overnight.
*Critical Care Note
Total Time (30-74mins, 75-104mins- exclusive of procedures): Not Applicable
ED Attending Note
-
Portions of this chart may have been created with voice recognition software.� Occasional wrong word or��sound alike� substitutions may have occurred due to the inherent limitations of voice recognition software.
Discharge Plan
Departure
Patient Disposition: Admit
Date of Disposition: 12/04/24
Time of Disposition: 23:30
Admit to: Telemetry
Admit to doctor: Sahil
Presentation/result/management discussed w/ accepting MD/DO: Hospitalist
Patient with high blood pressure during this ER visit?: No
Condition: Good
Covid-19: Not Applicable
Discharge Problem:
Chest pain
Prescriptions:
No Action
aspirin 81 MG tablet,delayed release (DR/EC)
81 mg PO DAILY
metformin 1,000 MG tablet
1,000 mg PO BID
clopidogrel [Plavix] 75 mg Tablet
75 mg PO DAILY
losartan 25 mg Tablet
25 mg PO DAILY
Jardiance 25 mg Tablet
25 mg PO DAILY
nitroglycerin 0.4 mg Tablet, Sublingual
0.4 mg SUBLINGUAL [id number] PRN (Reason: chest pain)
Patient Comments:
12/04/2023, pt. took two tablets today. One tablet around 0300 and the other around 07:45.
pantoprazole [Protonix] 20 MG tablet,delayed release (DR/EC)
20 mg PO DAILY Qty: 0 0RF
tamsulosin [Flomax] 0.4 mg Capsule
0.4 mg PO HS Qty: 0 0RF
isosorbide mononitrate 120 mg Tablet Extended Release 24 Hr
120 mg PO DAILY
glimepiride 4 mg Tablet
2 mg PO DAILY
ibuprofen 200 mg Tablet
400 mg PO BIDPRN PRN (Reason: mild pain)
Ozempic 0.25 mg or 0.5 mg (2 mg/3 mL) Pen Injector
0.25 mg SC FR@0800
Patient Comments:
12/04/2023, read message between pt. and their PCP about continuing to take 0.25 mg dose of Ozempic once a week on pt.'s phone.
therapeutic multivitamin Tablet
1 tab PO QPM
insulin degludec [Tresiba FlexTouch U-200] 200 unit/mL (3 mL) insulin pen
30 - 40 unit SC HS
Patient Comments:
12/04/2023, per pt., they take between 30-40 units of this med. HS; if their BS is below 150 they take closer to 30 units and if their BS is around 100 they skip the dose altogether.
rosuvastatin 40 mg tablet
40 mg PO QPM
metoprolol succinate 50 mg Tablet Extended Release 24 Hr
75 mg PO BID 30 Days Qty: 90 0RF
Referrals:
John Laguerre MD [Family Provider] -
Interventions
Interventions:
*Risk Screen - Suicide Last Done: 12/04/24 19:13
*General Assessment Last Done: 12/04/24 19:13
*Neglect/Abuse Screening Last Done: 12/04/24 19:13
*ED COVID-19 Vaccine History Last Done: 12/04/24 19:13
ED- Cardiac Assessment Last Done: 12/04/24 19:40
Discharge Date and Time
Print Language: GERMAN
[2024-12-05] VITALS (9 sets, daily range): BP systolic 102–150; BP diastolic 47–80; BMI 25.8
--- NOTE | 2024-12-05 00:24 | HPS.HSE ---
Family Physician
-
Family Physician: John Laguerre MD
Chief Complaint
-
Chest pain
History of Present Illness
Patient is a 64-year-old with past medical history significant for CAD status post multiple stents including stents in the LAD and RCA last placed in July 2023, hypertension, hyperlipidemia, diabetes on metformin and Tresiba presenting to the
emergency department with 1 day of recurrent chest pain.
Patient reports being in usual state of health up until today. He was picking up sticks this morning when he reported substernal chest pain that appeared to be radiating to the left side of the chest but not to the arms shoulders back neck jaws or
down the legs. He denies any associated nausea vomiting or shortness of breath. The pain lasted several minutes that he had to stop his activity and rest. He did not resolve until he took sublingual nitroglycerin. After several more minutes the
pain subsided entirely. However it recurred again 2 times by 4 PM that required nitroglycerin. This recurrence occurred without any change in activity. The chest pain again recurred at around 6 PM so he decided to come to the emergency department
for evaluation. He denied any recent stress test. He denies any recent exertional dyspnea or exertional chest pain. Reports compliance with his medications.
In the emergency department he was afebrile, blood pressure was initially 130 systolic, pulse 75, satting 95% on room air. His initial troponin was 0.012. ECG showed normal sinus rhythm at a rate of 69, repeat ECG showed normal sinus rhythm at a
rate of 75 without any morphological abnormalities whatsoever. His chest x-ray was completely normal.
CBC was all within normal limits. Electrolytes BUN/creatinine were all normal.
Repeat troponin 2 hours later remained at 0.012.
Medical History
Past Medical History
Past Medical History: Reports Other (Hypertension, hyperlipidemia, diabetes mellitus type 2, CAD.)
Past Surgical History: Reports Other (Cervical spine fusion, cholecystectomy.)
Social History
Tobacco: Former Smoker
Alcohol: None
Drug: None
Family History
Family History: Early CAD
Allergies / Home Medications
Allergies reflects when Allergies were last updated in [employer].
Home Medications with original date entered in [employer]
Allergy/Medication List:
Allergies
Allergy/AdvReac Type Severity Reaction Status Date / Time
Fish Containing Products Allergy Anaphylaxis Verified 12/04/24 19:13
fish derived Allergy Anaphylaxis Verified 12/04/24 19:13
mollusks Allergy Anaphylaxis Verified 12/04/24 19:13
shellfish derived Allergy Anaphylaxis Verified 12/04/24 19:13
Home Medications
aspirin 81 mg tablet,delayed release 81 mg PO DAILY Blood Clot Prevention/Tx 10/14/16
metformin 1,000 mg tablet 1,000 mg PO BID Diabetes 10/14/16
clopidogrel 75 mg tablet (Plavix) 75 mg PO DAILY Blood Clot Prevention/Tx 07/05/23
empagliflozin 25 mg tablet (Jardiance) 25 mg PO DAILY Diabetes 07/05/23
losartan 25 mg tablet 25 mg PO DAILY Blood Pressure 07/05/23
nitroglycerin 0.4 mg sublingual tablet 0.4 mg sublingual [id number] PRN chest pain 07/05/23
pantoprazole 20 mg tablet,delayed release (Protonix) 20 mg PO DAILY GERD #0 tabs 07/09/23
tamsulosin 0.4 mg capsule (Flomax) 0.4 mg PO HS BPH #0 caps 07/09/23
glimepiride 4 mg tablet 2 mg PO DAILY Diabetes 12/04/23
ibuprofen 200 mg tablet 400 mg PO BIDPRN PRN mild pain 12/04/23
insulin degludec 200 unit/mL (3 mL) subcutaneous pen (Tresiba FlexTouch U-200 insulin) 30 - 40 unit SC HS Diabetes 12/04/23
isosorbide mononitrate 120 mg tablet,extended release 24 hr 120 mg PO DAILY Heart Disease/Condition 12/04/23
rosuvastatin 40 mg tablet 40 mg PO QPM High Cholesterol 12/04/23
semaglutide 0.25 mg or 0.5 mg (2 mg/3 mL) subcutaneous pen injector (Ozempic) 0.25 mg SC FR@0800 Diabetes 12/04/23
therapeutic multivitamin 1 tab PO QPM Supplement 12/04/23
metoprolol succinate 50 mg tablet,extended release 24 hr 75 mg (1.5 x 50 mg) PO BID 30 days #90 tabs 12/05/23
Review of Systems
-
History Source: Patient
Constitutional: Reports No Symptoms
EENT: Reports No Symptoms
Respiratory: Reports No Symptoms
Cardiac: Reports Chest Pain
Abdomen/GI: Reports No Symptoms
: Reports No Symptoms
Musculoskeletal: Reports No Symptoms
Skin: Reports No Symptoms
Neurological: Reports No Symptoms
Endocrine: Reports No Symptoms
Hematologic/Lymphatic: Reports No Symptoms
Psych: Reports No Symptoms
Physical Exam
Vital Signs
Vital Signs
Temp Pulse Resp BP Pulse Ox
98.2 F 73 21 102/68 94
12/04/24 19:13 12/05/24 00:00 12/05/24 00:00 12/05/24 00:00 12/05/24 00:00
Physical Exam
General: Well Developed, Well Nourished and Comfortable
HEENT: NormoCephalic, Anicteric and Moist mucous membranes
Respiratory: Clear
Cardiac: S1/S2 and Regular Rhythm
Breast: Deferred by me
GI: Soft, Non Tender, Non Distended and Normal Bowel Sounds
Rectal: Deferred by Provider
Musculoskeletal: No Clubbing, No Cyanosis and No Edema
Skin: Warm
Neuro: AO x 3 and Nonfocal/grossly intact
Hematologic/Lymphatic: No Lymphadenopathy
Psych: Calm
Laboratory Results
-
12/04/24 19:45
12/04/24 19:45
Laboratory Results
Total Bilirubin 0.8 mg/dl (0.2-1.3) 12/04/24 19:45
AST 21 U/L (17-59) 12/04/24 19:45
ALT 19 U/L (0-50) 12/04/24 19:45
Alkaline Phosphatase 60 U/L (38-126) 12/04/24 19:45
Troponin I < 0.012 ng/ml 12/04/24 22:27
Data Reviewed
-
Diagnostic Radiology: Image Personally Visualized and interpreted
Medical Tests (Nuc Med, Echo, EKG etc): Image Personally Visualized and interpreted
Lab Data: Labs Reviewed by me
Old Records: Reviewed
Impression/Plan
-
IMPRESSION:
64-year-old with history of CAD status post multiple stents with last several stents placed in 2022, diabetes, hypertension, hyperlipidemia presenting to the emergency department with intermittent chest pain throughout the day today. It is
substernal radiating to the left side of her chest but otherwise not associated with any other findings. According 4 times today and relieved with nitroglycerin and rest. Currently after aspirin and nitroglycerin in ED ED reports that the pain is
down to around 3 and not bothering him. Denies any current shortness of breath. He is initial workup in the ED was negative with normal ECG, normal troponin x 2, normal x-ray, normal CBC, normal electrolytes. Vital signs are stable except for
slight decrease in blood pressure after the sublingual nitroglycerin.
PLAN:
Chest pain -patient with significant history of CAD presenting with a typical chest pain occurring both with activity and at rest and relieved with nitroglycerin making him high risk for ACS. Possibly crescendo angina. Troponin is negative over
the last few hours x 2. ECG is nonischemic.
- admit to telemetry for now
- [id number] prn, if continued will transfer to IVU for [id number]
- one more cardiac enzymes tonight
- npo at breakfast
- continue aspirin, plavix, statin
- continue metoprolol, imdur and losartan
- cardiology consultation
DM II
- on units hs, continue 25 units hs when eating
- continue jardiance
- insulin sliding scale
- continue glimepiride 4 dialy
DVT PPX - lovenox sq
Code status - full code
[2024-12-05 05:47] LABS: Blood Urea Nitrogen 16 mg/dl (9-20); Calcium 9.3 mg/dl (8.4-10.2); Carbon Dioxide 30 mmol/L (22-30); Chloride 103 mmol/L (98-107); Estimated Creatinine Clearance 100 ml/min; Glucose 117 mg/dl (70-99); HDL Cholesterol 33 mg/dl; LDL Cholesterol, Calculated 22 mg/dl; Potassium 3.9 mmol/L (3.5-5.1); Sodium 139 mmol/L (135-145); Total Cholesterol 77 mg/dl (50-199); Triglyceride 113 mg/dl (10-149); Very Low Density Lipoprotein 22 mg/dl (0-30); eGFR > 60.00
[2024-12-05 06:02] LABS: Troponin I < 0.012 ng/ml
--- NOTE | 2024-12-05 06:19 | PTCARENOTE ---
pt finsihed last 2 liters of prep- no flecks. he is clear
[2024-12-05 06:22] LABS: Hematocrit 37.9 % (39.0-52.0); Hemoglobin 12.9 g/dL (13.0-18.0); Mean Corpuscular Hgb 28.5 pg (27.0-31.0); Mean Corpuscular Volume 83.8 fL (80.0-94.0); Mean Platelet Volume 10.4 fL (7.4-10.4); Platelet Count 230 10^3/uL (130-400); Red Blood Cell Count 4.52 10^6/uL (4.70-6.10); Red Cell Dist. Width 14.2 % (11.5-14.5); White Blood Cell Count 5.8 10^3/uL (4.8-10.8)
[2024-12-05] MEDS: GLUCOPHAGE PO ×2 (08:34→09:00)
[2024-12-05] MEDS: PLAVIX 75 MG PO (08:34)
[2024-12-05] MEDS: TOPROL XL 75 MG PO ×2 (08:34→19:58)
[2024-12-05] MEDS: COZAAR 25 MG PO (08:34)
[2024-12-05] MEDS: IMDUR (EXTENDED RELEASE) 120 MG PO (08:34)
[2024-12-05] MEDS: FARXIGA 10 MG PO (08:35)
[2024-12-05] MEDS: PROTONIX 20 MG PO (08:35)
[2024-12-05] MEDS: ASPIR LOW (ENTERIC COATED) 81 MG PO (08:35)
--- NOTE | 2024-12-05 10:48 | CON.CAR ---
Consultation
Consultation Request
Date/Time Consultation Requested: 12/05/2024 at 8:02 AM
Date/Time Consultation Performed: 12/05/2024 at 10:48 AM
Requesting Provider: Mundo Baxter MD
Performing Provider: Jose Juan Wilson MD
Reason for Consultation: chest pain
Medical History
-
Chief Complaint: chest discomfort
History of Present Illness:
64 y/o male with hypertension, dyslipidemia, DM2, CAD with stenting (details below- hx stenting, jailed septal, jailed marginal) who is here for evaluation of chest discomfort. He is a patient of Dr. Diallo ([facility]). This started yesterday
when he was doing yard work. He took 1 tablet of sublingual nitro around 1 PM with some improvement. He took an additional tab around 4 PM with some improvement but then chest pain recurred so he presented to the ER. In the ER chest pain was 3/10
but then he fell asleep and this morning has no chest pain at the time of my assessment. He was given ASA 325 mg. ECG revealed normal sinus rhythm with no evidence of ischemia. Troponins negative x 3.
[facility] 12/04/2023: Femoral access due to no palpable right radial pulse. 20% ostial LAD, patent proximal LAD stent, occluded septal service line coordinator with collaterals, LCx mild luminal irregularities, patent mid RCA stents, 30% distal RCA stenosis.
Ventriculogram with EF 63% and normal wall motion
Past Medical History
Past Medical History: CAD, HTN, Hypercholesterolemia and NIDDM
Social History
Tobacco: Former Smoker
Personal:
Living: With Family
Employment: Employed
Family History
Family History: Early CAD (brother [place] age 47)
Allergies / Home Medications
Allergy/AdvReac Type Severity Reaction Status Date / Time
Fish Containing Products Allergy Anaphylaxis Verified 12/04/24 19:13
fish derived Allergy Anaphylaxis Verified 12/04/24 19:13
mollusks Allergy Anaphylaxis Verified 12/04/24 19:13
shellfish derived Allergy Anaphylaxis Verified 12/04/24 19:13
�Medication �Instructions �Recorded �Confirmed �Type
aspirin 81 mg tablet,delayed 81 mg PO DAILY Blood Clot 10/14/16 12/05/24 History
release Prevention/Tx
metformin 1,000 mg tablet 1,000 mg PO BID Diabetes 10/14/16 12/05/24 History
clopidogrel 75 mg tablet (Plavix) 75 mg PO DAILY Blood Clot 07/05/23 12/05/24 History
Prevention/Tx
empagliflozin 25 mg tablet 25 mg PO DAILY Diabetes 07/05/23 12/05/24 History
(Jardiance)
losartan 25 mg tablet 25 mg PO DAILY Blood Pressure 07/05/23 12/05/24 History
nitroglycerin 0.4 mg sublingual 0.4 mg sublingual [id number] PRN 07/05/23 12/05/24 History
tablet chest pain
pantoprazole 20 mg tablet,delayed 20 mg PO DAILY GERD #0 tabs 07/09/23 12/05/24 Rx
release (Protonix)
tamsulosin 0.4 mg capsule (Flomax) 0.4 mg PO HS BPH #0 caps 07/09/23 12/05/24 Rx
ibuprofen 200 mg tablet 400 mg PO BIDPRN PRN mild pain 12/04/23 12/05/24 History
insulin degludec 200 unit/mL (3 30 - 40 unit SC HS Diabetes 12/04/23 12/05/24 History
mL) subcutaneous pen (Tresiba
FlexTouch U-200 insulin)
isosorbide mononitrate 120 mg 120 mg PO DAILY Heart 12/04/23 12/05/24 History
tablet,extended release 24 hr Disease/Condition
rosuvastatin 40 mg tablet 40 mg PO QPM High Cholesterol 12/04/23 12/05/24 History
semaglutide 0.25 mg or 0.5 mg (2 0.5 mg SC TH@2200 Diabetes 12/04/23 12/05/24 History
mg/3 mL) subcutaneous pen injector
(Ozempic)
therapeutic multivitamin 1 tab PO QPM Supplement 12/04/23 12/05/24 History
metoprolol succinate 50 mg 75 mg (1.5 x 50 mg) PO BID 30 days 12/05/23 12/05/24 Rx
tablet,extended release 24 hr #90 tabs
gabapentin 300 mg capsule 300 mg PO HS 12/05/24 12/05/24 History
Review of Systems
-
All other systems: Negative unless noted
Physical Exam
Vital Signs
Temp Pulse Resp BP Pulse Ox
98.2 F 80 14 135/72 94
12/05/24 07:58 12/05/24 07:58 12/05/24 07:58 12/05/24 07:58 12/05/24 07:58
Lab Results
12/05/24 05:07
12/05/24 05:07
Troponin I < 0.012 ng/ml 12/05/24 05:07
Physical Exam
General: Well Developed, Well Nourished and No Apparent Distress
HEENT: Normocephalic and Anicteric
Respiratory: Clear and Non Labored Respirations
Cardiac: S1/S2, Regular Rhythm and Other (weak R radial pulse); Negative Murmur or Peripheral Edema
Skin: Warm and Dry
Neuro: AO x 3
Impression / Plan
-
64 y/o male with hypertension, dyslipidemia, DM2, CAD with stenting (details below- hx stenting, jailed septal, jailed marginal) who is here for evaluation of chest discomfort concerning for unstable angina.
Chest discomfort with history of multivessel CAD
-Nonischemic ECG and negative troponins. Currently chest pain-free.
-[facility] 12/04/2023: Femoral access due to no palpable right radial pulse. 20% ostial LAD, patent proximal LAD stent, occluded septal service line coordinator with collaterals, LCx mild luminal irregularities, patent mid RCA stents, 30% distal RCA stenosis.
Ventriculogram with EF 63% and normal wall motion
-Start heparin drip for possible ACS
-Advised him to inform us if chest pain recurs. If it does, repeat ECG and troponins start nitro infusion to get him chest pain-free
-Continue home ASA 81, clopidogrel, BB and statin.
-N.p.o. past midnight for [facility] tomorrow
Coronary artery disease with stenting
-Coronary evaluation as above
-LDL 22 this admission
-Continue chronic medical therapy
Hypertension
-Well-controlled here. Continue home meds.
Diabetes: Management per primary team, add on A1c
Data Reviewed
-
EKG: Tracing Personally Visualized and interpreted, Discussed with Physician and Discussed with Patient
Medical Tests (Nuc Med, Echo etc): Report Reviewed by me
Labs: Labs Reviewed by me, Discussed with Physician and Discussed with Patient
Old Records: Reviewed
[2024-12-05] MEDS: HEPARIN 25000 UNITS/250 ML IV (12:04)
[2024-12-05 12:39] LABS: Glucose - Point of Care 88 mg/dl (70-99)
--- NOTE | 2024-12-05 13:08 | W.PN.HOSP.TC ---
Today's Communication/Plan
-
Cath 12/06/24
Assessment / Plan
Assessment / Plan
64-year-old with exertional chest pain
CVS: S1-S2 normal
Chest: CTA B/L
Abdomen: Soft, NT / Bowel sounds present
Extremities: No edema, normal pulses
# Chest pain
Treating as Unstable Angina
History of coronary disease with stents
Chest pain relieved with nitro
Cath 12/04/23 with very mild residual CAD with widely patent stents in the LAD and RCA, EF 63%.
Continue aspirin, Plavix, statin, metoprolol, Imdur and losartan
Heparin gtt started.
Troponin-x 2 negative
EKG reviewed by me-no ischemia
Chest x-ray reviewed by me-no acute changes
Check ECHO
Cardiology evaluation
Cardiac cath planned for 12/06/24
Noncardiac etiology should be entertained if the patient is taking NSAIDs and he took on Friday before pain started.
# Diabetes
Normally on Tresiba 30 units at night, Jardiance, Ozempic, metformin
Hold OHA while NPO
Lantus 15 units tonight.
Restart after Cath
# Hypertension-continue losartan, metoprolol
# Hyperlipidemia-continue statin
# Prostate disease-continue Flomax
# History of spinal fusion C6-C7 at [facility]/neuropathy-continue gabapentin
# Ex-smoker
# DVT prophylaxis-Lovenox
# Full code
D/W RN
D/W Cardiology
Anticipated Discharge: Within 24 hours
Subjective/Interval History
-
Date of Service: December 05, 2024
Objective Data
-
Labs:
Laboratory Results
12/05/24 12/05/24
05:07 11:26
WBC 5.8
Hgb 12.9 L
Hct 37.9 L
Plt Count 230
APTT 32.0
Sodium 139
Potassium 3.9
Chloride 103
Carbon Dioxide 30
BUN 16
Creatinine 0.7
Glucose 117 H
Calcium 9.3
Vital Signs:
Vital Signs
Temp Pulse Resp BP Pulse Ox
97.9 F 77 18 136/75 93
12/05/24 11:04 12/05/24 11:04 12/05/24 11:04 12/05/24 11:04 12/05/24 11:04
--- NOTE | 2024-12-05 16:05 | CM ---
CM met with pt bedside
Pt resides with his spouse and adult dtr in a 2SH with 2STE
Full flight to 2nd floor
Pt is indep and denies use of DMEs
Works full-time with a hybrid schedule
No financial insecurities
OBS form verbally reviewed- copy provided
Discharge Disposition- anticipate home no needs
[2024-12-05] MEDS: GLUCOPHAGE 1000 MG PO (17:54)
[2024-12-05] MEDS: CRESTOR 40 MG PO (17:54)
[2024-12-05 18:26] LABS: APTT 83.5 Sec (23.4-35.0)
[2024-12-05] MEDS: FLOMAX 0.4 MG PO (22:33)
--- NOTE | 2024-12-05 23:10 | PTCARENOTE ---
Pt refused the 15units of Lantus ordered this evening. pt concerned about dropping glucose too low, especially being NPO for scheduled cardiac cath after midnight. Current bedside glucose 89. Pt has own glucometer on can monitor his glucose
overnight. Heparin gtt infusing as ordered. Vital signs stable. WIll continue to monitor.
[2024-12-05 23:22] LABS: Glucose - Point of Care 89 mg/dl (70-99)
[2024-12-05 23:59] LABS: APTT 134.7 Sec (23.4-35.0)
[2024-12-06] VITALS (9 sets, daily range): BP systolic 97–135; BP diastolic 61–74
[2024-12-06 06:18] LABS: Glucose - Point of Care 135 mg/dl (70-99)
--- NOTE | 2024-12-06 07:26 | W.PN.HOSP.TC ---
Today's Communication/Plan
-
Cardiac catheter today
Assessment / Plan
Assessment / Plan
64-year-old with history of HI, s/p cardiac stents X4 presented with exertional chest pain
# Chest pain
-Treating as Unstable Angina
-History of coronary disease with stents
-Chest pain relieved with nitro
-Cath 12/04/23 with very mild residual CAD with widely patent stents in the LAD and RCA, EF 63%.
-Continue aspirin, Plavix, statin, metoprolol, Imdur and losartan
-Heparin gtt started.
-Troponin-x 3 negative
-EKG withno ischemia
-Chest x-ray no acute changes
-Cardiac cath planned for today
# Insulin-dependent diabetes
-Normally on Tresiba 30 units at night, Jardiance, Ozempic, metformin
-Hold OHA while NPO; Restart after Cath
# Hypertension-continue losartan, metoprolol
# Hyperlipidemia-continue statin
# Prostate disease-continue Flomax
# History of spinal fusion C6-C7 at [facility]/neuropathy-continue gabapentin
# Ex-smoker
# DVT prophylaxis-Lovenox
# Full code
Anticipated Discharge: Within 24 hours
Subjective/Interval History
-
Date of Service: December 06, 2024
AFVSS. Offers no new complaints. Denies any ongoing chest pain or trouble breathing.
Objective Data
-
Labs:
Laboratory Results
12/05/24 12/06/24
23:27 07:30
APTT 134.7 H Pending
Vital Signs:
Vital Signs
Temp Pulse Resp BP Pulse Ox
98.1 F 75 16 108/61 93
12/06/24 03:15 12/06/24 03:15 12/06/24 03:15 12/06/24 03:15 12/06/24 03:15
I&O
12/05/24 12/06/24 12/07/24
06:59 06:59 06:59
Intake Total 840 / 840
Balance 840 / 840
Review of Systems
-
History Source: Patient
All other systems: Reviewed and negative
Physical Exam
-
General: Well Developed, No Apparent Distress and Comfortable
HEENT: Negative Oxygen
Respiratory: Clear to Auscultation
Cardiac: Regular Rhythm and S1/S2; Negative Murmur or Rub
GI: Soft, Nontender and Nondistended
Musculoskeletal: No Edema
Neuro: Awake, Alert, Oriented, No Motor Deficits and Nonfocal/Grossly Intact
Psych: Calm
Data Reviewed
-
Labs: Labs Reviewed by me, Discussed with Physician and Discussed with Patient
[2024-12-06 07:52] LABS: APTT 76.5 Sec (23.4-35.0)
[2024-12-06 07:57] LABS: Glucose - Point of Care 89 mg/dl (70-99)
[2024-12-06] MEDS: ASPIR LOW (ENTERIC COATED) 81 MG PO (08:16)
[2024-12-06] MEDS: COZAAR 25 MG PO (08:16)
[2024-12-06] MEDS: PLAVIX 75 MG PO (08:16)
[2024-12-06] MEDS: IMDUR (EXTENDED RELEASE) 120 MG PO (08:16)
[2024-12-06] MEDS: PROTONIX 40 MG PO (08:16)
[2024-12-06 10:00] LABS: Glycohemoglobin (HgbA1c) 6.2 % (4.0-5.6)
[2024-12-06] MEDS: TOPROL XL 75 MG PO (10:13)
--- NOTE | 2024-12-06 10:55 | W.PN.UPDATE ---
Update Note
Progress Note Update
I saw and evaluated the patient. I reviewed the resident�s note and agree with findings and plan as documented in the resident�s note.
Currently denies CP.
Gen: NAD, AAOx3.
Eyes: EOMI, PERRLA, no scleral icterus.
Neck: supple.
CV: RRR, +S1/S2, no m/r/g.
Resp: CTAB, no rales, wheezes, or rhonchi.
Abd: +BS, soft, NT, ND
Skin: No rashes.
Neuro: CN 2-12 intact, non-focal.
Psych: Normal mood and affect.
Unstable Angina:
-h/o CAD with stents
-ECG without acute ischemic changes
-Trops NEG
-cont heparin gtt
-cath today
-check echo
-Continue aspirin, Plavix, statin, metoprolol, Imdur and losartan
Other problems:
DM2: SSI/acchecks
Essential Hypertension: continue losartan/imdur/metoprolol
Hyperlipidemia: continue statin
Prostate disease: continue Flomax
h/o spinal fusion C6-C7 at [facility]/neuropathy: continue gabapentin
FULL/Lovenox
[2024-12-06] MEDS: HEPARIN 25000 UNITS/250 ML IV (11:12)
[2024-12-06 12:15] LABS: Glucose - Point of Care 94 mg/dl (70-99)
--- NOTE | 2024-12-06 15:50 | ITS.CL.CATH ---
Termite Control Service Representative - Catheterization
Cardiac Catheterization
Procedure Report:
CARDIAC CATHETERIZATION REPORT
Date of Procedure: 12/06/2024
Referring: Jose Juan Wilson M.D.
INDICATION: Known coronary artery disease, chest pain concerning for accelerating angina.
PROCEDURE:
1. Left heart catheterization.
2. Coronary angiography.
A total of 18 minutes of procedural/moderate sedation was utilized. An independent medical artist was present to assist with and help manage the patient's level of consciousness and physiologic status.
ACCESS:
1. 6 [place] right common femoral artery using a modified Seldinger technique with a micropuncture kit under ultrasound guidance. Ultrasound image obtained.
CATHETERS:
1. 6 [place] JR4.
2. 6 [place] JL 4.
HEMODYNAMIC DATA
Weight (kg): 74.4
AO (s/d/x, mmHg): 106/65/83
LV (s/x mmHg): 107/13
LEFT VENTRICULOGRAPHY: Not performed.
CORONARY ANGIOGRAPHY
Dominance: Right.
Left Main: Large size, bifurcating vessel. There is no coronary artery disease.
LAD: Normal size vessel giving rise to 1 significant diagonal. There is a patent stent in the proximal vessel. There is a 30% lesion in the mid LAD.
Ramus: Congenitally absent.
Circumflex: Small size, nondominant vessel giving rise to 1 significant marginal which bifurcates into an upper and lower branch. There is a 30% lesion in the mid OM at the site of the bifurcation.
RCA: Normal size, dominant vessel. A patent stent is present in the proximal and mid vessel. There are luminal irregularities in the distal vessel.
INTERVENTION(S)
None.
Closure Device: 6 [place] Angio-Seal.
Radiation (mGy): 243.18
DAP (cm2.Gy): 17.8393
Fluoroscopy time (minutes): 1.3
CONCLUSIONS
1. Right dominant circulation with patent stents in the proximal LAD and proximal and mid RCA, a 30% lesion in the mid LAD and a 30% lesion in the mid OM at the site of the bifurcation into an upper and lower branch.
2. Normal filling pressures (LVEDP = 13 mmHg at 74.4 kg).
RECOMMENDATIONS:
1. Expectant management after cardiac catheterization via right common femoral approach.
2. Limited weight bearing for one week.
3. Continue aggressive secondary prevention with high-dose, high potency statin. Goal LDL <55.
4. Continue aggressive antiplatelet therapy.
5. Increase pantoprazole to 40 mg daily for possible GERD/esophageal spasm.
Copy to: JOANIE Coats, John Laguerre M.D., Jose Juan Wilson M.D., Iraj Simon M.D.
Jigar Nicole DO, FACC, FACP
[2024-12-06 16:29] LABS: Glucose - Point of Care 73 mg/dl (70-99)
--- NOTE | 2024-12-06 16:59 | W.PN.UPDATE ---
Update Note
Progress Note Update
Patient s/p cardiac cath. No new CAD. Okay for discharge per cardiology. Increase pantoprazole to 40 mg daily. Discussed with nurse and patient. AFVSS. Able to ambulate with minimal discomfort. Patient will follow-up with outpatient
cardiology in 3 to 4 weeks.
--- NOTE | 2024-12-06 17:02 | W.DCSUMMARY ---
Discharge Summary
Discharge Data
Date of Admission: 12/05/24
Date of Discharge: 12/06/24
-
Pending Results: No
Hospital Course
Discharging Physician : Ernesto Hager MD; Jamey Carlson MD
Disposition : Home
Primary care physician : John Laguerre
Principal Discharge diagnosis : Chest pain/unstable angina with history of multivessel CAD
Chronic Discharge diagnosis : Insulin-dependent diabetes, hypertension, hyperlipidemia, prostate disease, history of spinal fusion, ex-smoker
Hospital Course : 64 y/o male with hypertension, dyslipidemia, DM2, CAD with stenting presented for evaluation of chest discomfort. He is a patient of Dr. Diallo ([facility]). Pain started the day before coming to the ER when he was doing yard
work. He took 1 tablet of sublingual nitro around 1 PM with some improvement. He took an additional tab around 4 PM with some improvement but then chest pain recurred so he presented to the ER. In the ER chest pain was 3/10 but then he fell
asleep and next morning has no chest pain. He was given ASA 325 mg. ECG revealed normal sinus rhythm with no evidence of ischemia. Troponins negative x 3. COVID was negative HbA1c was 6.2
Cardiology was consulted and he was started on heparin drip for possible ACS. His other medication including ASA 81, Plavix, beta-ramakrishna and statin were continued. He was made n.p.o. past midnight and received cardiac cath on 12/06/2024. Report
below
After the cardiac cath he was discharged home with instruction to follow-up with outpatient cardiology in 3 to 4 weeks. He was also given instructions for postcardiac cath care along with discharge paperwork. His pantoprazole dose was increased to
40 mg daily for possible GERD/esophageal spasm. He was instructed to continue aggressive secondary prevention with high-dose, hypertensive statin. Goal LDL <55
Important imaging findings : Chest x-ray: No acute disease of the chest.
Procedure findings : EKG 12/04/2024: NORMAL SINUS RHYTHM
NORMAL ECG
EKG 12/05/2024: NORMAL SINUS RHYTHM
NORMAL ECG
CARDIAC CATHETERIZATION
CONCLUSIONS
1. Right dominant circulation with patent stents in the proximal LAD and proximal and mid RCA, a 30% lesion in the mid LAD and a 30% lesion in the mid OM at the site of the bifurcation into an upper and lower branch.
2. Normal filling pressures (LVEDP = 13 mmHg at 74.4 kg).
Discharge Plan
-
Patient Disposition: Home (Routine Discharge)
Discharge Diagnosis/Procedures: cardiac catheterization
Condition: Fair
Diet: Diabetic, Carb Controlled
Activity: As tolerated
Driving Restrictions: No driving for 24 hours
Bathing Restrictions: ok to shower after 24 hrs
Wound Care: Remove the gauze bandage after 24 hours
Stand Alone Forms: DC Instructions- Cath/EP Lab
Referrals:
Valentin Christine MD [Non-Admitting Privileges] - in three to four weeks
John Laguerre MD [Family Provider] - in less than 1 week
Additional Discharge Medication Instructions: Take pantoprazole 40 mg 1 tablet by mouth daily
Follow-up with family doctor in 1 week
Follow-up with cardiology in 3 to 4 weeks.
Prescriptions:
New
pantoprazole 40 mg Tablet,Delayed Release (Dr/Ec)
40 mg PO DAILY Qty: 30 0RF
Continued
aspirin 81 MG tablet,delayed release (DR/EC)
81 mg PO DAILY
metformin 1,000 MG tablet
1,000 mg PO BID
clopidogrel [Plavix] 75 mg Tablet
75 mg PO DAILY
losartan 25 mg Tablet
25 mg PO DAILY
Jardiance 25 mg Tablet
25 mg PO DAILY
nitroglycerin 0.4 mg Tablet, Sublingual
0.4 mg SUBLINGUAL [id number] PRN (Reason: chest pain)
tamsulosin [Flomax] 0.4 mg Capsule
0.4 mg PO HS Qty: 0 0RF
isosorbide mononitrate 120 mg Tablet Extended Release 24 Hr
120 mg PO DAILY
ibuprofen 200 mg Tablet
400 mg PO BIDPRN PRN (Reason: mild pain)
Ozempic 0.25 mg or 0.5 mg (2 mg/3 mL) Pen Injector
0.5 mg SC TH@2200
Patient Comments:
therapeutic multivitamin Tablet
1 tab PO QPM
insulin degludec [Tresiba FlexTouch U-200] 200 unit/mL (3 mL) insulin pen
30 - 40 unit SC HS
rosuvastatin 40 mg tablet
40 mg PO QPM
metoprolol succinate 50 mg Tablet Extended Release 24 Hr
75 mg PO BID 30 Days Qty: 90 0RF
gabapentin 300 mg Capsule
300 mg PO HS
Discontinued
pantoprazole [Protonix] 20 MG tablet,delayed release (DR/EC)
20 mg PO DAILY Qty: 0 0RF
Discharge Orders:
Discharge Patient (As Directed); Ordered 12/06/24
Ordered By: Jamey Carlson
Discharge Date and Time
Print Language: UPPER SORBIAN
--- NOTE | 2024-12-06 17:09 | CM ---
CM reviewed medical records. Plan for discharge to home today. No needs noted
PLAN: home no needs.
[2024-12-06] MEDS: CRESTOR PO (17:45)
--- NOTE | 2024-12-07 08:09 | W.PN.UPDATE ---
Update Note
Progress Note Update
Called patient multiple times no answer. Left a voicemail message for patient with instructions to discontinue use of ibuprofen with his other current medication. Patient can call for further questions.
== END 2024-12-06 19:17 | disposition home or self-care (01) ==
LOC: 1 ACUTE 00:46
PROVIDERS: Hospitalist; Physician Assistant; ADMITTING PHYSICIAN Internal Medicine; ATTENDING PHYSICIAN Internal Medicine; CONSULT PHYSICIAN Student in an Organized Health Care Education/Training Program; EMERGENCY PHYSICIAN Student in an Organized Health Care Education/Training Program; FAMILY PHYSICIAN Internal Medicine
DX: I25.110 Atherosclerotic heart disease of native coronary artery with unstable angina pectoris (principal); R07.9 Chest pain, unspecified; E11.9 Type 2 diabetes mellitus without complications; E78.00 Pure hypercholesterolemia, unspecified; I10 Essential (primary) hypertension; R06.03 Acute respiratory distress; R91.1 Solitary pulmonary nodule; I25.2 Old myocardial infarction; Z87.891 Personal history of nicotine dependence; Z79.02 Long term (current) use of antithrombotics/antiplatelets; Z79.82 Long term (current) use of aspirin; Z95.5 Presence of coronary angioplasty implant and graft; Z79.899 Other long term (current) drug therapy; Z79.84 Long term (current) use of oral hypoglycemic drugs; Z79.4 Long term (current) use of insulin; Z79.85 Long-term (current) use of injectable non-insulin antidiabetic drugs; Z98.1 Arthrodesis status; Z90.49 Acquired absence of other specified parts of digestive tract; Z82.49 Family history of ischemic heart disease and other diseases of the circulatory system; Z91.013 Allergy to seafood
CPT/HCPCS: 93458; 71046; 80048; 80053; 80061; 82962; 83036; 84484; 85025; 85027; 85730; 93005; 99285; G0378